=== PATIENT | male | born 1990 | race Caucasian/White ===

== ENCOUNTER 2017-03-13 17:36 | Emergency (ER) | payer BC ==
[2017-03-13 17:55] VITALS: BP 148/96
--- NOTE | 2017-03-13 19:16 | UC ---
Abdominal Pain Male HPI - HPI Summary HPI Summary: 27 yo male with constant epigastric pain x 3 days usually a 2/10 goes to 6/10 with food or liquid some nausea no vomiting recently was on vacation and has 3-5 drinks a day with is unusual for him one coffee day no asa.advil or aleve non smoker - History of Current Complaint Chief Complaint: UCAbdominalPain Stated Complaint: STOMACH PAIN Time Seen by Provider: 03/13/17 18:50 Hx Obtained From: Patient Onset/Duration: Gradual Onset, Lasting Days Timing: Constant Severity Initially: Mild Severity Currently: Mild Pain Intensity: 2 Pain Scale Used: 0-10 Numeric Location: Epigastric Radiates: No Character: Aching, Dull Aggravating Factor(s):: Food Alleviating Factor(s): Nothing Associated Signs And Symptoms: Positive: Nausea - Allergies/Home Medications Allergies/Adverse Reactions: Allergies Allergy/AdvReac Type Severity Reaction Status Date / Time Avocado Allergy Severe GI Upset Verified 03/13/17 17:56 Amoxicillin Allergy Intermediate Fever Verified 03/13/17 17:56 Hydrocodone [From Lortab] Allergy Intermediate Fever Verified 03/13/17 17:56 Penicillin V Allergy Intermediate Fever Verified 03/13/17 17:56 CHICK PEAS Allergy Severe GI Upset Uncoded 03/13/17 17:56 PMH/Surg Hx/FS Hx/Imm Hx Previously Healthy: Yes GI/ History: Gastroesophageal Reflux - Surgical History Surgical History: Yes Surgery Procedure, Year, and Place: 1993 - T&A. 2006 - wisdom teeth extraction - Social History Alcohol Use: Weekly Alcohol Amount: 2-3 DRINKS, 3 NIGHTS WEEK Substance Use Type: Other Substance Use Comment - Amount & Last Used: PSYCHADELICS Smoking Status (MU): Never Smoked Tobacco Review of Systems Constitutional: Negative Skin: Negative Eyes: Negative ENT: Negative Respiratory: Negative Cardiovascular: Negative Gastrointestinal: Abdominal Pain, Nausea Genitourinary: Negative Motor: Negative Neurovascular: Negative Musculoskeletal: Negative Neurological: Negative Psychological: Negative Is Patient Immunocompromised?: No All Other Systems Reviewed And Are Negative: Yes Physical Exam Triage Information Reviewed: Yes Appearance: Well-Appearing, No Pain Distress, Well-Nourished Vital Signs: Initial Vital Signs Temp 97.4 F 03/13/17 17:49 Pulse 84 03/13/17 17:49 Resp 16 03/13/17 17:49 BP 148/96 03/13/17 17:49 Pulse Ox 100 03/13/17 17:49 Vital Signs Reviewed: Yes Eyes: Positive: Conjunctiva Clear ENT: Positive: Hearing grossly normal. Negative: Nasal congestion, Nasal drainage, Trismus, Muffled/hoarse voice Neck: Positive: Supple, Nontender, No Lymphadenopathy Respiratory: Positive: Lungs clear, Normal breath sounds, No respiratory distress, No accessory muscle use Cardiovascular: Positive: RRR, No Murmur Abdomen Description: Positive: No Organomegaly, Other: - tender epigastrium. Negative: Nontender, CVA Tenderness (R), CVA Tenderness (L), Distended, Guarding , Hernia @, Hepatomegaly, McBurney's Point Tenderness, Peritoneal Signs, Pulsatile Mass, Splenomegaly Musculoskeletal: Positive: ROM Intact, No Edema Neurological: Positive: Alert Psychological Exam: Normal Skin Exam: Normal Abd Pain Male Course/Dx - Differential Dx/Clinical Impression Provider Diagnoses: epigastric pain of uncertain cause. ? gastritis vs eophagitis vs PUD vs other Discharge - Discharge Plan Condition: Stable Disposition: HOME Prescriptions: Famotidine TAB* [Pepcid 20 MG TAB*] 20 mg PO DAILY #14 tab Patient Education Materials: Gastroesophageal Reflux Disease (ED), Esophageal Spasm (ED) Referrals: Taco Lux MD [Primary Care Provider] - 5 Days Additional Instructions: my[place] 2 tablespoons (30 ml) every 2 hours while awake for 2-3 days recheck for new or worsening symptoms avoid caffeine/alcohol/advil/aleve for now see your MD next week if not better persistent symptoms may result in a gastroenterology referral
== END 2017-03-13 19:22 | disposition home or self-care (01) ==
LOC: UCEAST 17:36
DX: R10.13 Epigastric pain (principal); R11.0 Nausea; K21.9 Gastro-esophageal reflux disease without esophagitis; Z88.5 Allergy status to narcotic agent; Z88.0 Allergy status to penicillin
CPT/HCPCS: 99202; G0463

== ENCOUNTER 2018-04-16 17:14 | Emergency (ER) | payer BC ==
[2018-04-16 17:21] VITALS: BP 148/98
--- NOTE | 2018-04-16 18:17 | UC ---
Skin Complaint HPI - HPI Summary HPI Summary: R thumb pain started 1 wk ago after a cut got infected. redness swelling spreading around nail. - History of Current Complaint Chief Complaint: UCSkin Time Seen by Provider: 04/16/18 18:07 Stated Complaint: SOFT TISSUE Hx Obtained From: Patient Timing: Constant Onset Severity: Mild Pain Intensity: 3 Character: Swelling, Pain Associated Signs & Symptoms: Negative: Numbness, Pallor, Fever, Chills - Allergy/Home Medications Allergies/Adverse Reactions: Allergies Allergy/AdvReac Type Severity Reaction Status Date / Time amoxicillin Allergy Fever Verified 04/16/18 17:22 avocado Allergy GI Upset Verified 04/16/18 17:22 hydrocodone Allergy Fever Verified 04/16/18 17:22 Penicillins Allergy Fever Verified 04/16/18 17:22 CHICK PEAS Allergy Severe GI Upset Uncoded 04/16/18 17:22 Home Medications: Home Medications Multivitamin [Multivitamins] 1 cap PO DAILY 04/16/18 [History Confirmed 04/16/18 ] Review of Systems Constitutional: Negative Skin: Other - R thumb w/ redness, swelling, pain Respiratory: Negative Cardiovascular: Negative Musculoskeletal: Negative Neurological: Negative All Other Systems Reviewed And Are Negative: Yes PMH/Surg Hx/FS Hx/Imm Hx Previously Healthy: Yes - Surgical History Surgical History: Yes Surgery Procedure, Year, and Place: 1992 - T&A. 2006 - wisdom teeth extraction - Social History Alcohol Use: None Alcohol Amount: 2-3 DRINKS, 3 NIGHTS WEEK Substance Use Type: None Substance Use Comment - Amount & Last Used: PSYCHADELICS Smoking Status (MU): Never Smoked Tobacco Physical Exam Triage Information Reviewed: Yes Vital Signs: Initial Vital Signs Temp 97.5 F 04/16/18 17:18 Pulse 95 04/16/18 17:18 Resp 16 04/16/18 17:18 BP 148/98 04/16/18 17:18 Pulse Ox 100 04/16/18 17:18 Vital Signs Reviewed: Yes Cardiovascular: Positive: Brisk Capillary Refill - at R thumb Musculoskeletal: Positive: Strength Intact, ROM Intact, Edema @ - R thumb and nail bed, assoc. w/ small pinpoint purulent area+mild tenderness w/ normal nail intact. Course/Dx - Course Course Of Treatment: 2 days of worsening L thumb pain, swelling, redness after a fissure in skin got infected. no joint involvement. warm water soaks, antibxbp elevated, recommend f/u w/ pcp re: bp monitoring. - Differential Diagnoses - Skin Complaint Differential Diagnoses: Lymphangitis, MRSA, Other - Diagnoses Provider Diagnoses: soft tissue infection - Physician Notification/Consults Discussed Patient Care With: Altagracia Gr Time Discussed With Above Provider: 18:24 Discharge - Sign-Out/Discharge Documenting (check all that apply): Patient Departure All imaging exams completed and their final reports reviewed: No Studies - Discharge Plan Condition: Good Disposition: HOME Prescriptions: DOXYcycline CAP(*) [DOXYcycline 100MG CAP(*)] 100 mg PO DAILY #20 cap Patient Education Materials: Cellulitis (ED) Referrals: Taco Lux MD [Primary Care Provider] - Indu Sung MD [Medical Doctor] - Additional Instructions: follow up with ortho or pcp on friday, warm salt water soaks 2-3times daily for a week. check with your pcp about getting up to date tetanus as well as monitoring your blood pressure. return to urgent care if worsening symptoms. - Billing Disposition and Condition Condition: GOOD Disposition: Home - Attestation Statements Provider Attestation: I was available for consult. This patient was seen by the LAILA. The patient was presented to me, but was not seen by, or examined by me. -Angella
== END 2018-04-16 18:35 | disposition home or self-care (01) ==
LOC: UCEAST 17:14
DX: L08.9 Local infection of the skin and subcutaneous tissue, unspecified (principal); Z88.5 Allergy status to narcotic agent; Z88.0 Allergy status to penicillin; Z91.018 Allergy to other foods
CPT/HCPCS: 99212; G0463

== ENCOUNTER 2018-04-18 12:51 | Emergency (ER) | payer BC ==
[2018-04-18 13:24] VITALS: BP 147/100
[2018-04-18] MEDS ORDERED: Lidocaine 1%* 5 ML VIAL INJ ONE (14:04)
[2018-04-18] MEDS ORDERED: Lidocaine 1%* 5 ML VIAL ONE (14:05)
--- NOTE | 2018-04-18 14:26 | UC ---
Skin Complaint HPI - HPI Summary HPI Summary: Pt c/o worsening swelling, tenderness to right thumb. Pt was seen here 2 days ago for similar c/o but now tenderness and swelling has worsened. Pt is requesting incision and drainage.Pt was prescribed doxycycline and pt is taking it once per day. - History of Current Complaint Chief Complaint: UCSkin Time Seen by Provider: 04/18/18 13:57 Stated Complaint: FOLLOW-UP THUMB INJURY Hx Obtained From: Patient Onset/Duration: Gradual Onset, Lasting Days, Worse Since - onset Skin Exposure Onset/Duration: Days Ago Timing: Constant Onset Severity: Mild Current Severity: Moderate Pain Intensity: 4 Location: Hand (Right) - right thumb Character: Swelling, Pain, Redness, Raised, Painful Aggravating Factor(s): Touch Alleviating Factor(s): Nothing Associated Signs & Symptoms: Positive: Tenderness - Allergy/Home Medications Allergies/Adverse Reactions: Allergies Allergy/AdvReac Type Severity Reaction Status Date / Time amoxicillin Allergy Fever Verified 04/16/18 17:22 avocado Allergy GI Upset Verified 04/16/18 17:22 hydrocodone Allergy Fever Verified 04/16/18 17:22 Penicillins Allergy Fever Verified 04/16/18 17:22 CHICK PEAS Allergy Severe GI Upset Uncoded 04/16/18 17:22 Home Medications: Home Medications Ibuprofen 800 mg PO 04/18/18 [History] Review of Systems Constitutional: Negative Skin: Other - swelling tenderness Eyes: Negative ENT: Negative Respiratory: Negative Cardiovascular: Negative Gastrointestinal: Negative Genitourinary: Negative Motor: Decreased ROM - right thumb Neurovascular: Negative Musculoskeletal: Edema - right thumb Neurological: Negative Psychological: Negative Is Patient Immunocompromised?: No All Other Systems Reviewed And Are Negative: Yes PMH/Surg Hx/FS Hx/Imm Hx Previously Healthy: Yes - Surgical History Surgical History: Yes Surgery Procedure, Year, and Place: 1992 - T&A. 2006 - wisdom teeth extraction - Social History Occupation: Employed Full-time Lives: With Family Alcohol Use: None Alcohol Amount: 2-3 DRINKS, 3 NIGHTS WEEK Substance Use Type: None Substance Use Comment - Amount & Last Used: PSYCHADELICS Smoking Status (MU): Never Smoked Tobacco Have You Smoked in the Last Year: No Physical Exam Triage Information Reviewed: Yes Appearance: Well-Appearing Vital Signs: Initial Vital Signs Temp 99.4 F 04/18/18 13:18 Pulse 85 04/18/18 13:18 Resp 16 04/18/18 13:18 BP 147/100 04/18/18 13:18 Pulse Ox 99 04/18/18 13:18 Vital Signs Reviewed: Yes Eye Exam: Normal ENT Exam: Normal ENT: Positive: Hearing grossly normal Dental Exam: Normal Neck exam: Normal Respiratory: Positive: No respiratory distress Musculoskeletal: Positive: ROM Limited @ - right thumb, Edema @ - right thumb Neurological Exam: Normal Psychological Exam: Normal Skin Exam: Other - right thumb generalized tenderness and swelling. small area of white discoloration under skin right distal latearl aspect of thumb. Course/Dx - Differential Diagnoses - Skin Complaint Differential Diagnoses: MRSA - Diagnoses Provider Diagnoses: wound infection right thumb Procedures - Incision and Drainage Right Finger Site: right thumb, small amount of purulent dsicharge from incision site Anesthesia: Local, Lidocaine Instrument(s): Scalpel - #11 blade Discharge - Sign-Out/Discharge Documenting (check all that apply): Patient Departure All imaging exams completed and their final reports reviewed: No Studies - Discharge Plan Condition: Stable Disposition: HOME Patient Education Materials: Wound Infection (ED) Referrals: Taco Lux MD [Primary Care Provider] - If Needed Additional Instructions: Please take your previously prescribed Doxycycline every 12 hours until finished. Please note that your blood pressure was elevated at today's visit. Please follow up with your PCP regarding this finding. - Billing Disposition and Condition Condition: STABLE Disposition: Home
== END 2018-04-18 14:42 | disposition home or self-care (01) ==
LOC: UCEAST 12:51
DX: L08.9 Local infection of the skin and subcutaneous tissue, unspecified (principal); Z88.0 Allergy status to penicillin; Z88.3 Allergy status to other anti-infective agents; Z88.5 Allergy status to narcotic agent
CPT/HCPCS: 10060; 99211; G0463

== ENCOUNTER 2018-08-31 15:50 | Emergency (ER) | payer BC ==
[2018-08-31 16:48] VITALS: BP 154/107
--- NOTE | 2018-08-31 17:56 | UC ---
Back Pain HPI - HPI Summary HPI Summary: 28-year-old male comes in with a chief complaint of low back pain. Patient was at work on August 27, 2018 and he injured his low back. Pain was in his lumbar area. It was worse with twisting and turning and bending. Patient rested and Ice on it and it helped greatly. Is virtually back pain-free now. He did go to work today with minimal voltage no pain. He is here today for evaluation of his back injury to determine if he go back to full work. No weakness or numbness there is no pain radiating down the legs no change in urine or bowels. He has had intermittent low back pain over the years that has always gotten better with rest. - History of Current Complaint Chief Complaint: UCBackPain Stated Complaint: BACK INJURY Time Seen by Provider: 08/31/18 17:41 Pain Intensity: 1 - Allergies/Home Medications Allergies/Adverse Reactions: Allergies Allergy/AdvReac Type Severity Reaction Status Date / Time amoxicillin Allergy Fever Verified 08/31/18 16:48 avocado Allergy GI Upset Verified 08/31/18 16:48 hydrocodone Allergy Fever Verified 08/31/18 16:48 Penicillins Allergy Fever Verified 08/31/18 16:48 CHICK PEAS Allergy Severe GI Upset Uncoded 08/31/18 16:48 PMH/Surg Hx/FS Hx/Imm Hx Previously Healthy: Yes - Surgical History Surgical History: Yes Surgery Procedure, Year, and Place: 1992 - T&A. 2006 - wisdom teeth extraction - Family History Known Family History: Positive: Non-Contributory - Social History Alcohol Use: Weekly Alcohol Amount: 2-3 DRINKS, 3 NIGHTS WEEK Substance Use Type: None Substance Use Comment - Amount & Last Used: PSYCHADELICS Smoking Status (MU): Never Smoked Tobacco Have You Smoked in the Last Year: No Review of Systems All Other Systems Reviewed And Are Negative: Yes Constitutional: Positive: Negative Skin: Positive: Negative Eyes: Positive: Negative ENT: Positive: Negative Respiratory: Positive: Negative Cardiovascular: Positive: Negative Gastrointestinal: Positive: Negative Genitourinary: Positive: Negative Motor: Positive: Negative Neurovascular: Positive: Negative Musculoskeletal: Positive: Other: - see hpi Neurological: Positive: Negative Psychological: Positive: Negative Is Patient Immunocompromised?: No Physical Exam Triage Information Reviewed: Yes Appearance: Well-Appearing, No Pain Distress, Well-Nourished Vital Signs: Initial Vital Signs Temp 99.0 F 08/31/18 16:45 Pulse 80 08/31/18 16:45 Resp 16 08/31/18 16:45 BP 154/107 08/31/18 16:45 Pulse Ox 100 08/31/18 16:45 Vital Signs Reviewed: Yes Eye Exam: Normal Eyes: Positive: Conjunctiva Clear Neck exam: Normal Neck: Positive: Supple, Nontender Respiratory: Positive: Chest non-tender, Lungs clear, Normal breath sounds, No respiratory distress Cardiovascular: Positive: RRR Musculoskeletal Exam: Normal Musculoskeletal: Positive: Strength Intact, ROM Intact, Other: - Back non tender to palpation. Patellar reflexes 2+ B/L. No sensation deficit. Strength 5/ 5 B/L LE Neurological Exam: Normal Neurological: Positive: Alert, Muscle Tone Normal Psychological Exam: Normal Psychological: Positive: Age Appropriate Behavior Skin Exam: Normal Back Pain Course/Dx - Course Course Of Treatment: Patient is improved and I filled out his work for him to return to work with no restrictions on September 01, 2018. - Differential Dx/Diagnosis Provider Diagnosis: Low back pain Discharge - Sign-Out/Discharge Documenting (check all that apply): Patient Departure All imaging exams completed and their final reports reviewed: No Studies - Discharge Plan Condition: Stable Disposition: HOME Patient Education Materials: Low Back Strain (ED), Lower Back Exercises (ED) Referrals: Taco Lux MD [Primary Care Provider] - Additional Instructions: FOLLOW UP WITH YOUR DOCTOR IF NOT COMPLETELY IMPROVED. GET RECHECKED FOR ANY WORSENING OF YOUR CONDITION OR QUESTIONS OR CONCERNS. - Billing Disposition and Condition Condition: STABLE Disposition: Home
== END 2018-08-31 18:30 | disposition home or self-care (01) ==
LOC: UCEAST 15:50
DX: M54.5 Low back pain (principal); Z88.0 Allergy status to penicillin; Z91.09 Other allergy status, other than to drugs and biological substances; Z88.5 Allergy status to narcotic agent; Z88.8 Allergy status to other drugs, medicaments and biological substances
CPT/HCPCS: 99211; G0463